=== PATIENT | female | born 1990 | race Caucasian/White ===

== ENCOUNTER 2021-10-28 10:54 | Emergency (ER) | payer BC ==
[~2021-10-28] VITALS: Ht 175.3 cm; Wt 69.0 kg
[2021-10-28 10:58] VITALS: BP 110/65
== END 2021-10-28 21:05 | disposition left against medical advice (07) ==
LOC: ER 11:37
DX: Z20.2 Contact with and (suspected) exposure to infections with a predominantly sexual mode of transmission (principal)
CPT/HCPCS: 99281